=== PATIENT | male | born 1965 | race Two or more races ===

== ENCOUNTER 2020-04-24 18:07 | Inpatient (IN) | payer MEDICAID, OTHER ==
[~2020-04-24] VITALS: Ht 175.3 cm; Wt 98.0 kg
[~2020-04-24 18:07] MED LIST: ASPI325T11 PO; ATOR40TA59 PO; CARV6.2511 PO; CLOP75TA PO; DIPH25CA58 PO; ISOS30TA68 PO; LISI-517 PO; NITR0.4T24 SL; PIMO2TAB3 PO; VARE0.5T PO
[2020-04-24] MEDS ORDERED: MORPHINE SULFATE 4 MG/ML VIAL. IV ONE (19:00)
[2020-04-24 19:26] LABS: BASO # 0.1 x10^3/uL (0.0-0.2); BASO % 1 % (0-3); EOS # 0.2 x10^3/uL (0.0-0.7); EOS % 2 % (0-3); HEMATOCRIT 43.7 % (39.0-53.0); HEMOGLOBIN 14.8 g/dL (13.0-17.5); LYMPH # 1.9 x10^3/uL (1.0-4.8); LYMPH % 16 % (24-48); MEAN CORPUSCULAR HEMOGLOBIN 30 pg (25-35); MEAN CORPUSCULAR HGB CONC 34 g/dL (31-37); MEAN CORPUSCULAR VOLUME 88 fL (79-100); MONO # 1.2 x10^3/uL (0.0-1.1); MONO % 11 % (0-9); NEUT # 8.3 x10^3/uL (1.8-7.7); NEUT % 71 % (31-73); PLATELET COUNT 232 x10^3/uL (140-400); RED BLOOD COUNT 4.98 x10^6/uL (4.30-5.70); RED CELL DISTRIBUTION WIDTH 14.1 % (11.5-14.5); WHITE BLOOD COUNT 11.7 x10^3/uL (4.0-11.0)
[2020-04-24 19:40] LABS: CALCIUM 8.9 mg/dL (8.5-10.1); GFR 77.9; PHOSPHORUS 3.4 mg/dL (2.6-4.7)
[2020-04-24 19:45] LABS: ALBUMIN 3.5 g/dL (3.4-5.0); TOTAL BILIRUBIN 0.2 mg/dL (0.2-1.0); TOTAL PROTEIN 7.1 g/dL (6.4-8.2)
--- NOTE | 2020-04-24 20:05 | PHYS DOC ---
Past Medical History Past Medical History: CAD, High Cholesterol, [place], Other Additional Past Medical Histor: TOURETTE'S Past Surgical History: Other Additional Past Surgical Histo: cardiac cath with stent placement Smoking Status: Current Every Day Smoker Additional Information: 06/14 ppd Alcohol Use: None Drug Use: Methamphetamine Social History Narrative: denies General Adult EDM: Chief Complaint: CHEST PAIN HPI: HPI: Patient is a 54 year old male presents emergency department complaint of sternal chest pain that started approximately 530 this morning. Patient states that he was working in his garage all day yesterday moving heavy objects and thinks he may have pulled a muscle in his chest. Patient reports that he went to a medical facility called [facility] in [facility] this morning. P atient reports he was worked up for a cardiac problem, was told he was having a heart attack, stated that he left AGAINST MEDICAL ADVICE. Patient reports that his pain is currently an 8/10 on a 1-10 pain scale sternal chest. Denies radiation of his pain. Denies shortness of breath. Denies chest palpitations. Denies nasal congestion or chest congestion. Patient denies nausea, vomiting, or diarrhea. Patient denies diaphoretic episodes. Patient states that he had a heart attack in September 2019 and was seen here and had 1 stent placed at [facility]. Patient states that he was supposed to be on blood thinners and other heart medications but lost his job and has not been able to afford them for several months. Patient states he smokes 1 pack of cigarettes per day. Patient denies illicit drug use, denies alcohol consumption. Review of Systems: Review of Systems: 14 body systems of review of systems have been reviewed. See HPI for pertinent positives and negative responses, otherwise all other systems are negative, nonpertinent or noncontributory. Heart Score: HEART Score for Chest Pain: HEART Score for Chest Pain Response (Comments) Value History Highly Suspicious 2 ECG Nonspecific Repolarizatio 1 Age >45 - < 65 1 Risk Factors 1 or 2 Risk Factors 1 Troponin >3 x Normal Limit 2 Total 7 Risk Factors: Risk Factors: DM, Current or recent (<one month) smoker, HTN, HLP, family history of CAD, obesity. Risk Scores: Score 0 - 3: 2.5% MACE over next 6 weeks - Discharge Home Score 4 - 6: 20.3% MACE over next 6 weeks - Admit for Clinical Observation Score 7 - 10: 72.7% MACE over next 6 weeks - Early Invasive Strategies Current Medications: Current Medications Medications (Trade) Dose Ordered Sig/[facility] Start Time Stop Time Status Last Admin Dose Admin Morphine Sulfate (Morphine Sulfate) 4 mg 1X ONCE 04/24/20 19:00 04/24/20 19:02 DC 04/24/20 19:15 4 MG Allergies: Allergies: Allergies Coded Allergies Type Severity Reaction Last Updated Verified No Known Drug Allergies 04/24/20 No Physical Exam: PE: Constitutional: Well developed, well nourished, no acute distress, non-toxic appearance. HENT: Normocephalic, atraumatic, bilateral external ears normal, oropharynx moist, no oral exudates, nose normal. Eyes: PERRLA, EOMI, conjunctiva normal, no discharge. Neck: Normal range of motion, no tenderness, supple, no stridor. Cardiovascular:Heart rate regular rhythm, no murmur, heart sounds S1-S2, PMI just left of sternum. Lungs & Thorax: Bilateral breath sounds clear to auscultation all lung dennis. Sternal chest pain reproducible that increases with palpation. Abdomen: Bowel sounds normal, soft, no tenderness, no masses, no pulsatile masses. Skin: Warm, dry, no erythema, no rash. Back: No tenderness, no CVA tenderness. Extremities: No tenderness, no cyanosis, no clubbing, ROM intact, no edema. Neurologic: Alert and oriented X 3, normal motor function, normal sensory function, no focal deficits noted. Psychologic: Affect normal, judgement normal, mood normal. Current Patient Data: Labs: Laboratory Tests Test 04/24/20 19:00 White Blood Count 11.7 x10^3/uL (4.0-11.0) H Red Blood Count 4.98 x10^6/uL (4.30-5.70) Hemoglobin 14.8 g/dL (13.0-17.5) Hematocrit 43.7 % (39.0-53.0) Mean Corpuscular Volume 88 fL (79-100) Mean Corpuscular Hemoglobin 30 pg (25-35) Mean Corpuscular Hemoglobin Concent 34 g/dL (31-37) Red Cell Distribution Width 14.1 % (11.5-14.5) Platelet Count 232 x10^3/uL (140-400) Neutrophils (%) (Auto) 71 % (31-73) Lymphocytes (%) (Auto) 16 % (24-48) L Monocytes (%) (Auto) 11 % (0-9) H Eosinophils (%) (Auto) 2 % (0-3) Basophils (%) (Auto) 1 % (0-3) Neutrophils # (Auto) 8.3 x10^3/uL (1.8-7.7) H Lymphocytes # (Auto) 1.9 x10^3/uL (1.0-4.8) Monocytes # (Auto) 1.2 x10^3/uL (0.0-1.1) H Eosinophils # (Auto) 0.2 x10^3/uL (0.0-0.7) Basophils # (Auto) 0.1 x10^3/uL (0.0-0.2) Sodium Level 140 mmol/L (136-145) Potassium Level 4.0 mmol/L (3.5-5.1) Chloride Level 103 mmol/L (98-107) Carbon Dioxide Level 28 mmol/L (21-32) Anion Gap 9 (6-14) Blood Urea Nitrogen 14 mg/dL (8-26) Creatinine 1.0 mg/dL (0.7-1.3) Estimated GFR (Cockcroft-Gault) 77.9 BUN/Creatinine Ratio 14 (6-20) Glucose Level 144 mg/dL (70-99) H Calcium Level 8.9 mg/dL (8.5-10.1) Phosphorus Level 3.4 mg/dL (2.6-4.7) Magnesium Level 2.0 mg/dL (1.8-2.4) Total Bilirubin 0.2 mg/dL (0.2-1.0) Aspartate Amino Transferase (AST) 26 U/L (15-37) Alanine Aminotransferase (ALT) 31 U/L (16-63) Alkaline Phosphatase 78 U/L (46-116) Troponin I Quantitative 1.076 ng/mL (0.000-0.055) Total Protein 7.1 g/dL (6.4-8.2) Albumin 3.5 g/dL (3.4-5.0) Albumin/Globulin Ratio 1.0 (1.0-1.7) Laboratory Tests 04/24/20 19:00 Laboratory Tests 04/24/20 19:00 Vital Signs: Vital Signs Date Time Temp Pulse Resp B/P (MAP) Pulse Ox O2 Delivery O2 Flow Rate FiO2 04/24/20 19:15 16 100 Room Air 04/24/20 18:07 98.4 82 129/67 (87) 98.4 EKG: EKG: EKG performed at 1815 by ED nursing staff shows sinus rhythm without ectopy heart rate 83 bpm SD interval 0.132, QTc interval 0.495, leads II 3 and [address] elevation, EKG interpreted by ED attending physician Dr. Lynn. Radiology/Procedures: Radiology/Procedures: SEX: M EXAM STATUS: REG ER ORD. PHYSICIAN: JITENDRA XIAO APRN REASON: CHEST PAIN 2 PROCEDURE: CHEST PA & LATERAL Chest, PA and Lateral: Technique: PA and lateral views of the chest were obtained. History: Chest pain. Comparison: 09/19/2018. Findings: The heart and pulmonary vasculature appear within normal limits. The lungs are clear. The pleural margins are clear. Impression: No acute chest process is seen. Electronically signed by: Bipin Raymundo MD (04/24/2020 8:49 PM) [id number] DICTATED and SIGNED BY: BIPIN RAYMUNDO MD DATE: 04/24/20 [id number] 0 Course & Med Decision Making: Course & Med Decision Making Pertinent Labs and Imaging studies reviewed. (See chart for details) 54-year-old male vital signs stable, presents emergency department for chest pain. A cardiac work-up was initiated related to patient's stating he left AMA from another facility telling him that he was having a heart attack. [facility] was contacted for patient's ED records. Patient was given 4 mg of morphine IV which brought his pain down to 4/10 from 8/10. Patient's troponin was elevated. Contacted Dr. Bustos who recommended heparin bolus and drip protocol along with nitroglycerin sublingual and drip, patient was given [address] Bustos agreed to accept patient as consult and asked that inpatient management Assume care for patient admission. Discussed case with Dr. Simon who agreed to assume patient care on the telemetry unit with a diagnosis of NSTEMI. Discussed admission plan with patient who is amendable to admission. Reexamination of patient, patient remains in nontoxic appearance, vital signs remained stable, patient's chest pain remains 4/10 pain on a 1-10 pain scale. Patient is in no respiratory distress. The patient is not hypoxic. Patient admitted to the telemetry unit. Impression: #1 NSTEMI Dragon Disclaimer: Dragon Disclaimer: This electronic medical record was generated, in whole or in part, using a voice recognition dictation system. Departure Departure Impression: Primary Impression: NSTEMI (non-ST elevated myocardial infarction) Additional Impression: Chest pain Qualified Codes: R07.9 - Chest pain, unspecified Disposition: 09 ADMITTED INPT THIS HOSP Admitting Physician: CHARLENE (TO Dr. Easton full admission to telemetry for NSTEMI) Condition: GUARDED Referrals: UNKNOWN PCP NAME (PCP) JITENDRA XIAO APRN Apr 24, 2020 20:05
--- NOTE | 2020-04-24 20:51 | RAD ---
Chest, PA and Lateral: Technique: PA and lateral views of the chest were obtained. History: Chest pain. Comparison: 09/19/2018. Findings: The heart and pulmonary vasculature appear within normal limits. The lungs are clear. The pleural ma rgins are clear. Impression: No acute chest process is seen. Electronically signed by: Bipin Raymundo MD (04/24/2020 8:49 PM) [id number]
[2020-04-24] MEDS ORDERED: HEPARIN for IV BOLUS 10,000 UNIT/10 ML VIAL. IV PRN (21:00)
[2020-04-24] MEDS ORDERED: HEPARIN 25,000UTS/250ML PREMIX 250 ML IV PRN (21:00)
[2020-04-24] MEDS ORDERED: NITROGLYCERIN SUBLINGUAL 0.4 MG BOTTLE OF 25. SL PRN (21:00)
[2020-04-24] MEDS ORDERED: NITROGLYCERIN PREMIX 250 ML IV ONE (21:00)
[2020-04-24] MEDS ORDERED: ASPIRIN CHEWABLE 81 MG TABLET. PO ONE (21:00)
[2020-04-24] MEDS ORDERED: HEPARIN for IV BOLUS 10,000 UNIT/10 ML VIAL. IV ONE (21:00)
[2020-04-24 21:48] LABS: HEMATOCRIT 43.1 % (39.0-53.0); HEMOGLOBIN 14.5 g/dL (13.0-17.5); RED BLOOD COUNT 4.89 x10^6/uL (4.30-5.70); RED CELL DISTRIBUTION WIDTH 14.4 % (11.5-14.5); WHITE BLOOD COUNT 11.6 x10^3/uL (4.0-11.0)
[2020-04-24 21:57] LABS: PROTHROMBIN TIME PATIENT 13.4 SEC (11.7-14.0)
[2020-04-24 21:58] LABS: UNFRACTIONATED HEPARIN TESTING 0.81 IU/mL (0.30-0.70)
[2020-04-24 22:11] LABS: PARTIAL THROMBOPLASTIN TIME > 150 SEC (24-38)
[2020-04-24 23:11] VITALS: BP 121/73
--- NOTE | 2020-04-24 23:15 | NUR ---
pt has order for a nitro gtt, pt has not c/o chest pain, was told in report that pt was/is asymptomatic, will cont to monitor pt status and safety. pmrn
--- NOTE | 2020-04-24 23:15 | NUR ---
A 54y.o. male admitted to [facility] with chest pain, nstemi. pt ambulated to bathroom and bed w/o assistance. pt denies pain at this time. vss, poc explained, pt on heparin gtt as per protocol assessment complete,admission packet given, call light in reach will cont to monitor pt status and safety. pmrn
[2020-04-25 02:58] VITALS: BP 104/59
--- NOTE | 2020-04-25 04:07 | EKG ---
[facility] [address] [place] [address] Test Date: 2020-04-24 Test Time: 18:15:02 Pat Name: LAVON BOCANEGRA Department: Room: Gender: M Career Consultant: : 1965 Requested By: JITENDRA XIAO Order Number: [id number] Reading MD: Measurements Intervals [place] Rate: 83 P: -26 OR: 132 QRS: 78 QRSD: 98 T: 52 QT: 416 QTc: 495 Interpretive Statements SINUS RHYTHM QRS(T) CONTOUR ABNORMALITY CONSISTENT WITH ANTERIOR INFARCT AGE UNDETERMINED ABNORMAL ECG RI6.02 No previous ECG available for comparison
[2020-04-25 05:07] LABS: HEMATOCRIT 44.2 % (39.0-53.0); HEMOGLOBIN 14.9 g/dL (13.0-17.5); RED BLOOD COUNT 5.06 x10^6/uL (4.30-5.70); RED CELL DISTRIBUTION WIDTH 14.3 % (11.5-14.5)
[2020-04-25 05:22] LABS: CHOLESTEROL/HDL RATIO 4.4
[2020-04-25 07:28] VITALS: BP 113/64
[2020-04-25] MEDS ORDERED: ANTI-COAG MONITOR BY PHARMACY. MC PRN (07:45)
--- NOTE | 2020-04-25 08:54 | PDOC2 ---
CECILIA FRYE [employer] 04/25/20 0854: CARDIAC CONSULT DATE OF CONSULT Date of Consult DATE: 04/25/20 TIME: 08:48 REASON FOR CONSULT Reason for Consult: NSTEMI REFERRING PHYSICIAN Referring Physician: Jeramy SOURCE Source: Chart review, Patient HISTORY OF PRESENT ILLNESS HISTORY OF PRESENT ILLNESS This is a 54 yo male admitted for complains of chest pain. Reports as chest pressure started Thursday while working in his garage then it went away and came back Thursday. Reports no nausea or vomiting, SOA. No palpitations. He has not been seen in our office for a while and claimed that he lost his job over a yr ago and has stopped taking any routine medications since then. He continues to smoke tobacco and basically smokes methamphetamines daily andhis last use was 3 days ago. PAST MEDICAL HISTORY Cardiovascular: CAD, HTN, Hyperlipidemia, Other (ICM) Pulmonary: No pertinent hx CENTRAL NERVOUS SYSTEM: Other (No pertinent history) GI: No pertinent hx Heme/Onc: No pertinent hx Hepatobiliary: No pertinent hx Psych: Other (tourettes) Musculoskeletal: Osteoarthritis Rheumatologic: No pertinent hx Infectious disease: No pertinent hx ENT: No pertinent hx Renal/: No pertinent hx Endocrine: No pertinent hx Dermatology: No pertinent hx PAST SURGICAL HISTORY Past Surgical History: Other (PCI) FAMILY HISTORY Family History: Coronary Artery Disease (father with premature CAD) SOCIAL HISTORY Smoke: <1 pack per day ALCOHOL: none Drugs: Crystal meth Lives: with Family CURRENT MEDICATIONS CURRENT MEDICATIONS Current Medications Medications (Trade) Dose Ordered Sig/Fay Route PRN Reason Start Time Stop Time Status Last Admin Dose Admin Morphine Sulfate (Morphine Sulfate) 4 mg 1X ONCE IV 04/24/20 19:00 04/24/20 19:02 DC 04/24/20 19:15 Heparin Sodium (Porcine) (Heparin Sodium) 4,000 unit 1X ONCE IV 04/24/20 21:00 04/24/20 21:01 DC 04/24/20 21:15 Heparin Sodium/ Dextrose 250 ml @ 0 mls/hr CONT PRN IV PER PROTOCOL 04/24/20 21:00 04/24/20 21:23 Heparin Sodium (Porcine) (Heparin Sodium) 2,150 unit PRN Q6HRS PRN IV FOR UFH LEVEL LESS THAN 0.2 04/24/20 21:00 04/25/20 05:43 Aspirin (Aspirin Chewable) 324 mg 1X ONCE PO 04/24/20 21:00 04/24/20 21:01 DC 04/24/20 21:12 Nitroglycerin (Nitrostat) 0.4 mg PRN Q5MIN PRN SL CHEST PAIN 04/24/20 21:00 04/24/20 21:11 Info (Anti-Coagulation Monitoring By Pharmacy) 1 each PRN DAILY PRN MC SEE COMMENTS 04/25/20 07:45 04/25/20 07:44 ALLERGIES ALLERGIES: Coded Allergies: No Known Drug Allergies (Unverified , 04/24/20) ROS Review of System 14 point ROS evaluated with pertinent positives noted per HPI PHYSICAL EXAM General: Alert, Oriented X3, Cooperative, No acute distress HEENT: Atraumatic, Mucous membr. moist/pink Lungs: Clear to auscultation, Normal air movement Heart: Regular rate (SR), Normal S1, Normal S2, No murmurs Abdomen: Soft, No tenderness Extremities: No cyanosis, No edema Skin: No breakdown, No significant lesion Neuro: Normal speech, Sensation intact Psych/Mental Status: Mental status NL, Mood NL MUSCULOSKELETAL: Osteoarthritic changes both hands VITALS/I&O VITALS/I&O: Vital Signs Date Time Temp Pulse Resp B/P (MAP) Pulse Ox O2 Delivery O2 Flow Rate FiO2 04/25/20 08:00 Room Air 04/25/20 07:28 97.6 93 18 113/64 (80) 97 97.6 I & O 04/24/20 04/24/20 04/25/20 15:00 23:00 07:00 Intake Total 240 ml Balance 240 ml LABS Lab: Laboratory Tests Test 04/24/20 19:00 04/24/20 21:33 04/24/20 21:44 04/24/20 22:10 White Blood Count 11.7 x10^3/uL (4.0-11.0) H 11.6 x10^3/uL (4.0-11.0) H Red Blood Count 4.98 x10^6/uL (4.30-5.70) 4.89 x10^6/uL (4.30-5.70) Hemoglobin 14.8 g/dL (13.0-17.5) 14.5 g/dL (13.0-17.5) Hematocrit 43.7 % (39.0-53.0) 43.1 % (39.0-53.0) Mean Corpuscular Volume 88 fL (79-100) 88 fL (79-100) Mean Corpuscular Hemoglobin 30 pg (25-35) 30 pg (25-35) Mean Corpuscular Hemoglobin Concent 34 g/dL (31-37) 34 g/dL (31-37) Red Cell Distribution Width 14.1 % (11.5-14.5) 14.4 % (11.5-14.5) Platelet Count 232 x10^3/uL (140-400) 217 x10^3/uL (140-400) Neutrophils (%) (Auto) 71 % (31-73) Lymphocytes (%) (Auto) 16 % (24-48) L Monocytes (%) (Auto) 11 % (0-9) H Eosinophils (%) (Auto) 2 % (0-3) Basophils (%) (Auto) 1 % (0-3) Neutrophils # (Auto) 8.3 x10^3/uL (1.8-7.7) H Lymphocytes # (Auto) 1.9 x10^3/uL (1.0-4.8) Monocytes # (Auto) 1.2 x10^3/uL (0.0-1.1) H Eosinophils # (Auto) 0.2 x10^3/uL (0.0-0.7) Basophils # (Auto) 0.1 x10^3/uL (0.0-0.2) Sodium Level 140 mmol/L (136-145) Potassium Level 4.0 mmol/L (3.5-5.1) Chloride Level 103 mmol/L (98-107) Carbon Dioxide Level 28 mmol/L (21-32) Anion Gap 9 (6-14) Blood Urea Nitrogen 14 mg/dL (8-26) Creatinine 1.0 mg/dL (0.7-1.3) Estimated GFR (Cockcroft-Gault) 77.9 BUN/Creatinine Ratio 14 (6-20) Glucose Level 144 mg/dL (70-99) H Calcium Level 8.9 mg/dL (8.5-10.1) Phosphorus Level 3.4 mg/dL (2.6-4.7) Magnesium Level 2.0 mg/dL (1.8-2.4) Total Bilirubin 0.2 mg/dL (0.2-1.0) Aspartate Amino Transferase (AST) 26 U/L (15-37) Alanine Aminotransferase (ALT) 31 U/L (16-63) Alkaline Phosphatase 78 U/L (46-116) Creatine Kinase 173 U/L (39-308) Creatine Kinase MB (Mass) 16.9 ng/mL (0.0-3.6) H Creatine Kinase MB Relative Index 9.8 % (0-4) H Troponin I Quantitative 1.076 ng/mL (0.000-0.055) 2.841 ng/mL (0.000-0.055) PX-Lks-Q-Type Natriuretic Peptide 152 pg/mL (0-124) H Total Protein 7.1 g/dL (6.4-8.2) Albumin 3.5 g/dL (3.4-5.0) Albumin/Globulin Ratio 1.0 (1.0-1.7) Prothrombin Time 13.4 SEC (11.7-14.0) Prothrombin Time INR 1.1 (0.8-1.1) Activated Partial Thromboplast Time > 150 SEC (24-38) *H Heparin Anti-Xa Act, Unfractionated 0.81 IU/mL (0.30-0.70) H SARS-CoV-2 Antigen (Rapid) Negative (NEGATIVE) Test 04/25/20 00:45 04/25/20 05:00 Troponin I Quantitative 5.367 ng/mL (0.000-0.055) White Blood Count 11.0 x10^3/uL (4.0-11.0) Red Blood Count 5.06 x10^6/uL (4.30-5.70) Hemoglobin 14.9 g/dL (13.0-17.5) Hematocrit 44.2 % (39.0-53.0) Mean Corpuscular Volume 88 fL (79-100) Mean Corpuscular Hemoglobin 30 pg (25-35) Mean Corpuscular Hemoglobin Concent 34 g/dL (31-37) Red Cell Distribution Width 14.3 % (11.5-14.5) Platelet Count 224 x10^3/uL (140-400) Heparin Anti-Xa Act, Unfractionated < 0.10 IU/mL (0.30-0.70) L Triglycerides Level 281 mg/dL (0-150) H Cholesterol Level 172 mg/dL (0-200) LDL Cholesterol, Calculated 77 mg/dL (0-100) VLDL Cholesterol, Calculated 56 mg/dL (0-40) H Non-HDL Cholesterol Calculated 133 mg/dL (0-129) H HDL Cholesterol 39 mg/dL (40-60) L Cholesterol/HDL Ratio 4.4 Laboratory Tests 04/24/20 19:00 04/24/20 21:44 04/25/20 05:00 Laboratory Tests 04/24/20 19:00 ECHOCARDIOGRAM ECHOCARDIOGRAM <Conclusion> Mid to distal anteroseptal wall and apical wall hypokinesis. The ejection fraction was estimated at 40-45%. Transmitral Doppler flow pattern is Grade I-abnormal relaxation pattern. Trace to mild tricuspid regurgitation. Estimated PAP 23 mmHg. There is no evidence of significant pericardial effusion. DATE: 09/19/18 1430 HEART CATH HEART CATH Conclusion 1. Patent previously placed stent in the midsegment of left anterior descending artery. 70% stenosis noted in a small-caliber diagonal branch. 2. Apical wall hypokinesis with ejection fraction estimated at 45% Recommendations Patient's non-STEMI is most probably secondary to demand ischemia. Continue medical management. DATE: 10/15/18 1206 ASSESSMENT/PLAN ASSESSMENT/PLAN 1. NSTEMI 2. Substance abuse: smokes meth last use 3 days ago 3. Tobaccoism 4. HTN: controlled 5. ICM 6. HLP 7. Noncompliance Recommendations 1. ASA, heparin ongoing 2. [facility] today, risks and benefits discussed and agreeable to proceed 3. Lifestyle modification, smoking cessation, outpt f/u, meth cessation, treatment adherence 4. TTE today. Will eval GDMT post [facility] 5. CHF education per staff KARLA SUBRAMANIAN MD 04/26/20 0543: CARDIAC CONSULT ASSESSMENT/PLAN ASSESSMENT/PLAN Patient seen and examined 04/25/20. Agree with HUMAN SERVICE TECHNICIAN's assessment and plan. Patient with NSTEMI Cardiac cath showed 90% stenosis in a jailed diagonal branch and patent LAD stent Plan medical management since it is a small to medium caliber vessel EF 30% clinically well compensated Importance of compliance with meds and abstinence from meth use reemphasized Repeat echo in 3 months to evaluate need for ICD if he remains compliant OK for DC from cardiac standpoint CECILIA FRYE APRN Apr 25, 2020 08:54 KARLA SUBRAMANIAN MD Apr 26, 2020 05:43
[2020-04-25] MEDS ORDERED: IV NORMAL SALINE 1000ML BAG 1,000 ML IV ONE (09:00)
--- NOTE | 2020-04-25 09:09 | HP ---
ADMIT DATE: 04/25/2020 CHIEF COMPLAINT: Chest pain. HISTORY OF PRESENT ILLNESS: The patient is a pleasant middle-aged male, who presents to the ER with chest pain, rated at 7/10. It got worse this morning about 5:30. He states it was pressure like in sensation radiating to the left arm. The patient originally went to [facility] and was told he was having a heart attack, but he left against medical advice. Now in our Emergency Room, we noticed that his troponin is elevated. I discussed the case with the ER physician. We are admitting the patient with consultation to Cardiology. We placed him on nitro and heparin drip. PAST MEDICAL HISTORY: Noncompliance, CAD, hypertension, hyperlipidemia, previous myocardial infarction, Tourette's syndrome, cardiac catheterization, previous stent placement, tobacco abuse. ALLERGIES: None. FAMILY HISTORY: Coronary artery disease. SOCIAL HISTORY: He smokes. No drink or drugs. MEDICATIONS: Reviewed, please refer to the MRAD. REVIEW OF SYSTEMS: GENERAL: No history of weight change, weakness or fevers. SKIN: No bruising, hair changes or rashes. EYES: No blurred, double or loss of vision. NOSE AND THROAT: No history of nosebleeds, hoarseness or sore throat. HEART: He complains of chest pain. LUNGS: Denies cough, hemoptysis, wheezing or shortness of breath. GASTROINTESTINAL: Denies changes in appetite, nausea, vomiting, diarrhea or constipation. GENITOURINARY: No history of frequency, urgency, hesitancy or nocturia. NEUROLOGIC: Denies history of numbness, tingling, tremor or weakness. PSYCHIATRIC: No history of panic, anxiety or depression. ENDOCRINE: No history of heat or cold intolerance, polyuria or polydipsia. EXTREMITIES: Denies muscle weakness, joint pain, pain on walking or stiffness. PHYSICAL EXAMINATION: VITALS: Within normal limits and are stable. GENERAL: No apparent distress. Alert and oriented. HEENT: Normal cephalic atraumatic, external auditory canals are patent. Eyes: Extraocular muscles are intact, pupils are equally round and reactive to light and accommodation. MUSCULOSKELETAL: Well developed, well nourished, good range of motion. ENDOCRINE: No thyromegaly was palpated. LYMPHATICS: No cervical chain or axillary nodes were noted. HEMATOPOIETIC: No bruising. NECK: Supple, no JVD, no thyromegaly was noted. LUNGS: Clear to auscultation in all lung dennis without rhonchi or wheezing. HEART: RRR, S1, S2 present. Peripheral pulses intact, no obvious murmurs were noted. ABDOMEN: Soft, nontender. Positive bowel sounds no organomegaly, normal bowel sounds. EXTREMITIES: Without any cyanosis, clubbing, or edema. Pedal pulses intact, Homans sign is negative. NEUROLOGIC: Normal speech, normal tone. A and O x 3, moves all extremities, no obvious focal deficits. PSYCHIATRIC: Normal affect, normal mood. Stable. SKIN: No ulcerations or rashes, good skin turgor, no jaundice. VASCULAR: Good capillary refill, neurovascular bundle appears to be intact. LABORATORY DATA: Troponin is up to 5.3. ASSESSMENT AND PLAN: Acute myocardial infarction. The patient has been admitted. We have a heparin drip and nitro hanging. We have consulted Cardiology. We will continue cardiac monitoring, serial enzymes, serial EKGs. Prognosis guarded. 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 We will await Cardiology input. MANDI ESPANA DO DR: DEMETRICE/billy JOB#: [id number] / [id number]
[2020-04-25] MEDS ORDERED: NITROGLYCERIN 200 MCG/2 ML SYRINGE FOR CATH/VASC LAB. ONE (10:11)
[2020-04-25] MEDS ORDERED: MIDAZOLAM HCL/PF 5 MG/5 ML VIAL. ONE (10:11)
[2020-04-25] MEDS ORDERED: fentaNYL PF VIAL 100 MCG/2 ML VIAL ONE (10:11)
[2020-04-25] MEDS ORDERED: VERAPAMIL 5 MG/2 ML VIAL. ONE (10:11)
[2020-04-25] MEDS ORDERED: HEPARIN for IV BOLUS 10,000 UNIT/10 ML VIAL. ONE (10:11)
[2020-04-25] MEDS ORDERED: IOHEXOL 300 MG/ML 100ML VIAL. ONE (10:13)
[2020-04-25] MEDS ORDERED: LIDOCAINE 1% PF 2 ML VIAL. ONE (10:13)
[2020-04-25] MEDS ORDERED: IOHEXOL 300 MG/ML 100ML VIAL. IART ONE (10:30)
[2020-04-25] MEDS ORDERED: fentaNYL PF VIAL 100 MCG/2 ML VIAL IV ONE (10:30)
[2020-04-25] MEDS ORDERED: MIDAZOLAM HCL/PF 5 MG/5 ML VIAL. IV ONE (10:30)
[2020-04-25] MEDS ORDERED: NITROGLYCERIN 200 MCG/2 ML SYRINGE FOR CATH/VASC LAB. IART ONE (10:30)
[2020-04-25] MEDS ORDERED: VERAPAMIL 5 MG/2 ML VIAL. IART ONE (10:30)
[2020-04-25] MEDS ORDERED: HEPARIN for IV BOLUS 10,000 UNIT/10 ML VIAL. IART ONE (10:30)
[2020-04-25] MEDS ORDERED: LIDOCAINE 1% PF 2 ML VIAL. INJ ONE (10:30)
[2020-04-25 11:00] VITALS: BP 107/66
[2020-04-25 11:45] VITALS: BP 136/82
--- NOTE | 2020-04-25 12:01 | PDOC ---
MODERATE SEDATION ASSESSMENT RISKS/ALTERNATIVES Risks/Alternatives Risks and alternatives of this type of sedation and procedure discussed with: RISK/ALTERNATIVES: Patient H & P ON CHART H & P H & P on chart and reviewed for co-morbid conditions and appropriate labs. H&P ON CHART: Yes STATUS PREG STATUS ASSESSED: N/A MEDS/ALLERGIES REVIEWED Meds/Allergies Reviewed Medications and Allergies including time and route of recently administered narcotics and sedatives. MEDS/ALLERGIES REVIEWED: Yes ASA RATING ASA RATING: III AIRWAY ASSESSMENT Airway Assessment Airway patency, oral function limitations, presence of caps, crowns, dentures, partials, and ability to extend neck assessed. AIRWAY ASSESSMENT: Yes MALLAMPATI SCORE MALLAMPATI SCORE: II PRE-SEDATION ASSESSMENT PRE-SEDATION ASSESSMENT: Yes KARLA SUBRAMANIAN MD Apr 25, 2020 12:01
[2020-04-25] MEDS ORDERED: IV 1/2 NORMAL SALINE 1,000 ML IV SCH (12:15)
--- NOTE | 2020-04-25 12:18 | CARD ---
MR#: [id number] Date of Study: 04/25/2020 Ordering Physician: CECILIA FRYE, Referring Physician: CECILIA FRYE, Tech: RT Allen (R) APPROVED REPORT Technologist: RT Allen (R) Nurse: Bailey Felipe R.N. Procedure(s) performed: Left heart catheterization, selective coronary angiography and left ventricul ography via right transradial approach Fluoro Time: 3.7 min Dose: 61.39 Gycm2 Contrast total: 137cc's Omni 300 Sedation time: 36 MINUTES Estimated blood loss: 10 ml INDICATION The indication(s) include : non-STEMI . [facility] Clinical Frailty Scale [facility] Clinical Frailty Scale: Mildly Frail Heart Failure Heart Failure: No PROCEDURE NARRATIVE After explaining the risks, benefits and alternative options, informed consent was obtained from yulia ent. Patient was brought to the cardiac Visual Journalist and right wrist was prepped and draped in the usual fashion after confirming a positive modified Rolan's test. Arterial access was obtained in the righ t radial artery and a 6 Chinese sheath was inserted. 6 Chinese Abiel catheter was used to perform js ective angiography of the left and right coronary arteries. 6 Chinese pigtail catheter was used to pe rform left ventriculography. Patient tolerated the procedure well. Hemostasis was achieved using TR band. There were no immediate complications. The following findings were noted. FINDINGS 1. Hemodynamics: Left ventricular end-diastolic pressure of 15 mmHg. No pullback gradient across th e aortic valve. 2. Left ventriculography: Moderate left ventricle systolic dysfunction and severe hypokinesis of the apical wall with ejection fraction estimated at 30%. No significant mitral regurgitation seen. 3. Coronary angiography: a. The left main coronary artery arose from the left sinus of Valsalva, gave rise to the left anteri or descending and left circumflex arteries and did not show any significant stenosis. b. The left anterior descending artery showed a widely patent stent in the midsegment. The diagonal branch that was jailed by the stent showed 90% stenosis in the proximal segment. This is a small to medium caliber vessel that showed 70% stenosis last cardiac catheterization and was managed medicall y. c. The left circumflex artery did not show any significant stenosis. d. The right coronary artery was a large and dominant vessel arising from the right sinus of Valsalv a that showed 20 to 30% stenosis in the midsegment. Conclusion 1. 90% stenosis involving a small to medium caliber jailed diagonal branch, slightly worse compared to last cardiac catheterization. The previously placed stent in the left anterior descending artery is widely patent. No lesions needing intervention were noted. 2. Moderate left ventricle systolic dysfunction and severe hypokinesis of the apical wall with eject ion fraction estimated at 30%. Recommendations 1. Medical management for coronary disease 2. Optimization of medical therapy for cardiomyopathy and repeat 2D echo in 3 months. Signed by : Shay Laird, Electronically Approved : 04/25/2020 12:18:04
[2020-04-25] MEDS ORDERED: ASPIRIN ENTERIC COATED 81 MG TABLET.DR. PO SCH (13:30)
[2020-04-25] MEDS ORDERED: CLOPIDOGREL BISULFATE 75 MG TABLET PO SCH (13:30)
[2020-04-25 14:40] VITALS: BP 103/57
--- NOTE | 2020-04-25 14:40 | NUR ---
SS following up with discharge planning. SS reviewed pt chart and discussed with pt RN. Pt is from home and is currently on room air. Pt has history of Methamphetamine abuse. Pt had heart cath today. PAT team referral made for Methamphetamine use. PAT team met with pt and provided referral for [facility]. Pt provided with resources to include $4 medication list and information on [facility] for assistance with prescriptions. SS will continue to follow for discharge planning.
[2020-04-25 14:58] VITALS: BP 103/57
[2020-04-25] MEDS ORDERED: LISINOPRIL 5 MG TABLET. PO SCH (15:00)
[2020-04-25] MEDS ORDERED: CARVEDILOL 6.25 MG TABLET. PO SCH (17:00)
--- NOTE | 2020-04-25 17:40 | CARD ---
MR#: [id number] Date of Study: 04/25/2020 Ordering Physician: CECILIA FRYE, Referring Physician: CECILIA FRYE Tech: Edel Evangelista [facility] APPROVED REPORT EXAM: Two-dimensional and M-mode echocardiogram with Doppler and color Doppler. Other Information Quality : Good Technically limited study due to body habitus. INDICATION Non STEMI 2D DIMENSIONS RVDd2.5 (2.9-3.5cm)Left Atrium(2D)2.9 (1.6-4.0cm) IVSd1.1 (0.7-1.1cm)Aortic Root(2D)3.6 (2.0-3.7cm) LVDd5.8 (3.9-5.9cm)LVOT Diameter2.2 (1.8-2.4cm) PWd1.0 (0.7-1.1cm)LVDs5.1 (2.5-4.0cm) FS (%) 12.3 %SV43.2 ml LVEF(%)26.2 (>50%) Aortic Valve AoV Peak Tim.104.4cm/sAoV VTI18.6cm AO Peak GR.4.4mmHgLVOT VTI 15.20cm AO Mean GR.3mmHgAVA (VTI)2.98cm2 Mitral Valve MV E Krecilea29.5cm/sMV DECEL [id number] MV A Ttbtaqjj682.3cm/sE/A Ratio0.7 TDI Lateral E' P. V7.20cm/sMedial E' P. V4.07cm/s E/Lateral E'13.0E/Medial E'23.0 Pulmonary Vein S1 Tghlzkze86.0cm/sS2 Eqrhfxql81.76cm/s D2 Fteoemkd85.8cm/s LEFT VENTRICLE The left ventricle is normal size. There is normal left ventricular wall thickness. Left ventricle sy stolic function is severely impaired. The Ejection Fraction is 25-30%. There is severe global hypokin esis of the left ventricle. The septum and distal 1/2 of the LV are severely hypokinetic to akinetic. Tissue Doppler imaging reveals severe left ventricular diastolic dysfunction. RIGHT VENTRICLE The right ventricle is normal size. The right ventricular systolic function is normal. ATRIA The left atrium size is normal. The right atrium size is normal. The interatrial septum is intact wit h no evidence for an atrial septal defect or patent foramen ovale as noted on 2-D or Doppler imaging. AORTIC VALVE The aortic valve is calcified but opens well. Doppler and Color Flow revealed no significant aortic r egurgitation. There is no significant aortic valvular stenosis. MITRAL VALVE The mitral valve is calcified but opens well. There is no evidence of mitral valve prolapse. There is no mitral valve stenosis. Doppler and Color Flow revealed no mitral valve regurgitation noted. TRICUSPID VALVE The tricuspid valve is normal in structure and function. Doppler and Color Flow revealed no tricuspid valve regurgitation noted. There is no tricuspid valve stenosis. PULMONIC VALVE The pulmonic valve is not well visualized. Doppler and Color Flow revealed trace pulmonic valvular re gurgitation. There is no pulmonic valvular stenosis. GREAT VESSELS The aortic root is normal in size. The ascending aorta is mildly dilated at 3.5 cm. The IVC is normal in size and collapses >50% with inspiration. PERICARDIAL EFFUSION There is no evidence of significant pericardial effusion. Critical Notification Critical Value: No <Conclusion> Left ventricle systolic function is severely impaired. The Ejection Fraction is 25-30%. There is severe global hypokinesis of the left ventricle. The septum and distal 1/2 of the LV are sev erely hypokinetic to akinetic. Technically difficult study Signed by : Jamal Bustos, Electronically Approved : 04/25/2020 17:39:23
--- NOTE | 2020-04-25 18:15 | NUR ---
Discharge Note: LAVON BOCANEGRA Discharge instructions and discharge home medications reviewed with Patient and a copy given. All questions have been answered and understanding verbalized. Prescriptions called into pt pharmacy in [place]. Girlfriend and patient given all education on follow ups, medications, post cardiac cath instructions, and chf information. Pt and significant other verbalized understanding.
[2020-04-25] MEDS ORDERED: ATORVASTATIN CALCIUM 40 MG TABLET. PO SCH (21:00)
[2020-04-26] MEDS ORDERED: PIMOZIDE PO SCH (09:00)
--- NOTE | 2020-05-10 14:02 | DS ---
DATE OF DISCHARGE: 04/25/2020 ADMISSION DIAGNOSES: Chest pain and slight elevation of troponin of 5.3, suspect myocardial infarction. DISCHARGE DIAGNOSES: Resolving myocardial infarction, substance abuse, tobacco abuse, hypertension, hyperlipidemia, noncompliance. CONSULTS: Cardiology. PROCEDURES: Cardiac catheterization, which showed 90% stenosis involving a small to medium caliber jailed diagonal branch, slightly worse compared to last cardiac catheterization. The previously placed stent in the left anterior descending artery is widely patent. No lesions needing intervention were noted. HOSPITAL COURSE: The patient is a pleasant middle-aged male, who presented with chest pain. He had known previous coronary artery disease. He was admitted. We consulted Cardiology. He was taken for cardiac catheterization. No stents had to be placed. Post-catheterization, he was stable. We discharged to home. DISPOSITION: Home. ACTIVITY: As tolerated. DIET: Low sodium. MEDICATIONS: Please see the MRAD. TOTAL TIME: 32 minutes. MANDI ESPANA DO DR: DEMETRICE/billy JOB#: [id number] / [id number]
== END 2020-04-25 18:18 | disposition home or self-care (01) | DRG 282 ==
LOC: ER 18:07 → 2 NORTH 20:00
PROVIDERS: ADMIT Internal Medicine; ATTEND Internal Medicine
PROC: 4A023N7 Measurement of Cardiac Sampling and Pressure, Left Heart, Percutaneous Approach (ICD-10-PCS; principal; 2020-04-25)
PROC: B2111ZZ Fluoroscopy of Multiple Coronary Arteries using Low Osmolar Contrast (ICD-10-PCS; 2020-04-25)
PROC: B2151ZZ Fluoroscopy of Left Heart using Low Osmolar Contrast (ICD-10-PCS; 2020-04-25)
DX: I21.4 Non-ST elevation (NSTEMI) myocardial infarction (principal); I25.10 Atherosclerotic heart disease of native coronary artery without angina pectoris; E78.00 Pure hypercholesterolemia, unspecified; F17.210 Nicotine dependence, cigarettes, uncomplicated; E78.5 Hyperlipidemia, unspecified; F95.2 Tourette's disorder; M19.90 Unspecified osteoarthritis, unspecified site; F15.10 Other stimulant abuse, uncomplicated; I10 Essential (primary) hypertension; I25.5 Ischemic cardiomyopathy; I25.2 Old myocardial infarction; Z95.5 Presence of coronary angioplasty implant and graft; Z91.19 Patient's noncompliance with other medical treatment and regimen; Z82.49 Family history of ischemic heart disease and other diseases of the circulatory system; Z20.822 Contact with and (suspected) exposure to COVID-19
CPT/HCPCS: 36415; 71046; 80053; 80061; 82553; 83735; 83880; 84100; 84484; 85025; 85027; 85520; 85610; 85730; 87426; 93005; 93306; 93458; 96365; 96375; 96376; 99152; 99153; C1769; C1892; J1644; J2250; J2270; J3010; J3490; J7030; Q9967; U0003; 99285-25; G0378